=== PATIENT | male | born 1995 | race Caucasian/White ===

== ENCOUNTER 2017-11-12 21:26 | Emergency (ER) | payer OTHER ==
[~2017-11-12] VITALS: Ht 188 cm; Wt 104.3 kg
[~2017-11-12 21:26] MED LIST: ABILIFY20 MG PO; BENZACLIN GEL25 GM; CLONAZEPAM0.5 MG PO; DIVALPROEX SOD500 MG PO; ESCITALOPRAM OX10 MG PO; ESCITALOPRAM OXA5 MG PO; ESCITALOPRAM10 MG PO; LEVOTHYROXINE88 MCG PO; LITHIUM CARBON300 M6 PO; LITHIUM CARBON450 M1 PO; LORAZEPAM0.5 MG PO; MECLIZINE HCL25 MG PO; QUETIAPINE FUMA50 M1 PO; TRUMENBA; VYVANSE50 MG PO; ZOFRAN ODT4 M1 SL
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
[2017-11-12] MEDS ORDERED: CYCLOBENZAPRINE10 M1 PO (22:48)
[2017-11-12] MEDS ORDERED: IBUPROFEN800 M1 PO (22:48)
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
[2017-11-12 23:10] VITALS: BP 144/66
== END 2017-11-12 23:15 ==
LOC: ERH 21:26
DX: S93.401A Sprain of unspecified ligament of right ankle, initial encounter (principal); S46.912A Strain of unspecified muscle, fascia and tendon at shoulder and upper arm level, left arm, initial encounter; V47.5XXA Car driver injured in collision with fixed or stationary object in traffic accident, initial encounter; Y93.89 Activity, other specified; Y92.410 Unspecified street and highway as the place of occurrence of the external cause
CPT/HCPCS: 71100-LT; 73000-LT; 73030-LT; 73610-RT